=== PATIENT | male | born 1960 | race Hispanic/Latino ===

== ENCOUNTER 2017-10-16 12:20 | Observation (INO) | payer OTHER ==
[2017-10-16 12:57] LABS: #Basophils 0.1 thou/uL (0.0-0.2); #Eosinphils 0.1 thou/uL (0.0-0.7); #Lymphocytes 1.6 thou/uL (1.20-3.40); #Monocytes 0.3 thou/uL (0.11-0.59); #Neutrophils 3.4 thou/uL (1.40-6.50); %Basophils 1.6 % (0.0-1.0); %Eosinophils 1.4 % (0.0-10.0); %Lymphocytes 28.9 % (21.0-51.0); %Monocytes 5.7 % (0.0-10.0); %Neutrophils 62.4 % (42.0-75.0); Hemoglobin 16.1 g/dL (14.0-18.0); Mean Corpuscular HGB CONC 34.5 g/dL (32.0-36.0); Mean Corpuscular Hemoglobin 31.1 pg (27.0-31.0); Mean Corpuscular Volume 90.2 fL (78.0-98.0); Mean Platelet Volume 7.4 fL (7.4-10.4); Platelet Count 222 thou/uL (130-400); RBC Distribution Width 11.4 % (11.5-14.5); Red Blood Cell (RBC) Count 5.18 mill/uL (4.70-6.10); White Blood Cell (WBC) Count 5.4 thou/uL (4.8-10.8)
--- NOTE | 2017-10-16 12:58 | RAD ---
CHEST ONE VIEW: History: Palpitations. FINDINGS: No comparison. Cardiac silhouette is magnified by projection. Pulmonary vasculature is unremarkable. Mediastinum is midline. No lobar consolidation or evidence of pneumothorax. curriculum assistant principal leads ove rlie the chest. IMPRESSION: No active cardiopulmonary abnormalities are demonstrated. POS: [facility]
[2017-10-16 13:13] LABS: ALT (SGPT) 23 U/L (8-55); AST (SGOT) 25 U/L (5-34); Albumin 4.5 g/dL (3.5-5.0); Alkaline Phosphatase 69 U/L (40-150); Anion Gap 12 mmol/L (10-20); BUN (Urea Nitrogen) 18 mg/dL (8.4-25.7); Bilirubin, Total 1.8 mg/dL (0.2-1.2); CK (CPK) 207 U/L (30-200); Calc. Creatinine Clearance 0 mL/min (70-130); Calcium 9.7 mg/dL (7.8-10.44); Carbon Dioxide 25 mmol/L (22-29); Chloride 104 mmol/L (98-107); Estimated GFR-MDRD 64; Globulin 2.9 g/dL (2.4-3.5); Glucose 101 mg/dL (70-105); Lipase 44 U/L (8-78); Potassium 4.2 mmol/L (3.5-5.1); Protein, Total 7.4 g/dL (6.0-8.3); Sodium 137 mmol/L (136-145)
[2017-10-16 13:18] LABS: CKMB 3.3 ng/mL (0-6.6); Troponin I Less than 0.010 ng/mL (< 0.028)
[2017-10-16] MEDS ORDERED: Enoxaparin Sodium 80 MG/0.8 ML SYRINGE ONE (15:04)
[2017-10-16 15:53] VITALS: BMI 25.6
--- NOTE | 2017-10-16 18:01 | CON ---
DATE OF CONSULTATION: 10/16/2017 REASON FOR CONSULTATION: Atrial flutter. HISTORY OF PRESENT ILLNESS: Mr. Dickinson is a pleasant 57-year-old gentleman with no significant past medical history who states he has not felt well over the last month. He states he monitors heart rat e regularly while running. His heart rate has been elevated at rest. It is always in the 40s and 50 s, appears in the 80s and 90s. No chest pain or pressure noted. He does get shortness of breath wit h exertion as his heart rate increases. He had stopped on multiple occasions. He was recently seen and evaluated with an EKG and found to be in atrial flutter. It was recommended he proceed to the em ergency room where he has been subsequently admitted. PAST MEDICAL HISTORY: None. PAST SURGICAL HISTORY: None. SOCIAL HISTORY: No current alcohol or tobacco use. ALLERGIES: None. MEDICATIONS: None. REVIEW OF SYSTEMS: Ten point review of systems reviewed as above, otherwise negative. PHYSICAL EXAMINATION: GENERAL: Patient is a pleasant male who is in no acute distress. The patient appears his stated age. VITAL SIGNS: Blood pressure 170/84, pulse 85, temperature 97.4. NEUROLOGIC: The patient is alert and oriented times 3 with no focal neurologic deficits. HEENT: Sclerae without icterus. Mouth has moist mucous membranes with normal pallor. NECK: No JVD. Carotid upstroke brisk. No bruits bilaterally. LUNGS: Clear to auscultation with unlabored respirations. BACK: No scoliosis or kyphosis. CARDIAC: Regular rate and rhythm with normal S1 and S2. No S3 or S4 noted. No significant rubs, murmurs, thrills, or gallops noted throughout the precordium. PMI is not displaced. There is no parasternal heave. ABDOMEN: Soft, nontender, nondistended. No peritoneal signs present. No hepatosplenomegaly. No abnormal striae. EXTREMITIES: 2+ femoral and 2+ dorsalis pedis pulses. No cyanosis, clubbing, or edema. SKIN: No gross abnormalities. IMAGING DATA: EKG shows atrial flutter with variable block. PERTINENT LABORATORY DATA: Hemoglobin 16.1, ACL CK of 203 with an MB of 3.3, troponin less aubrey n 0.01. IMPRESSION: Atrial flutter. RECOMMENDATIONS: 1. Add Lovenox. 2. Consult EP. 3. Consider EP ablation tomorrow. He may also consider discharging and performing an EP procedure a s an outpatient. Patient appears to be stable and agree with monitoring overnight to assess for any significant dysrhythmias.
[2017-10-16 18:02] LABS: Troponin I Less than 0.010 ng/mL (< 0.028)
[2017-10-16] MEDS ORDERED: Acetaminophen 650 MG/20.3 ML UDCUP PO PRN (18:22)
[2017-10-16] MEDS ORDERED: Zolpidem Tartrate 5 MG TAB PO PRN (18:22)
[2017-10-16 20:24] LABS: Troponin I Less than 0.010 ng/mL (< 0.028)
--- NOTE | 2017-10-17 01:52 | HP ---
DATE OF ADMISSION: 10/16/2017 HISTORY OF PRESENT ILLNESS: This is a 57-year-old Latin-[place] male who presents with fatigue. Th e patient has been in relatively good health. He has been jogging for many years. Ever since June s stamina has been markedly decreased. Over the past 4 weeks, he has only been able to jog mile and a half and then has to walk for a period of time before he can resume his jogging. This is very unus ual of him. His problem has become progressively worse and he has noted his heart rate to be at time s 140-180 which is unusual. His resting heart rate at times also is 70-90 where he has been in the 4 5-55 range for years. He has no associated chest pain, shortness of breath, nausea or vomiting. He was seen in the office this morning by our PA Ronan and she found him to be in atrial flutter and w as referred to the emergency room. PAST MEDICAL HISTORY: Losartan 50 mg daily, Flomax 0.4 mg daily, finasteride 5 daily. ALLERGIES: None. PAST MEDICAL HISTORY: Hypertension, hyperlipidemia, BPH. PAST SURGICAL HISTORY: Include colonoscopy [place] [address] Alexis. FAMILY HISTORY: Father 84 with heart disease and bypass. Mother 78. Brother at 57 years of ag e while jogging. No family history of cancer. SOCIAL HISTORY: He has four daughters ranging from 21-39. He is . He does not smoke. REVIEW OF SYSTEMS: As above. PHYSICAL EXAMINATION: VITAL SIGNS: Stable, afebrile, blood pressure 122/84, heart rate 80, temperature 98.0. GENERAL: No acute distress, ambulating without difficulty. HEENT: Clear. HEART: Irregularly irregular. No murmurs noted. LUNGS: Clear to auscultation. ABDOMEN: Soft, nontender. EXTREMITIES: With no edema. LABORATORY DATA: White count 5.4, H&H 16 and 46, platelets 222. Electrolytes normal. Creatinine 1. 17, BUN 18. Troponin less than 0.010 x3. ASSESSMENT: 1. New onset atrial flutter. 2. Hypertension. 3. Hyperlipidemia. 4. Benign prostatic hypertrophy. PLAN: 1. Lovenox 1 mg/kg q.12. 2. Admit to telemetry for observation overnight. 3. Consult Dr. Nieves done. 4. Consult Dr. Panda for cardiac ablation evaluation. 5. Discuss atrial flutter at length with the patient.
[2017-10-17] MEDS ORDERED: Enoxaparin Sodium 80 MG/0.8 ML SYRINGE SC SCH (09:00)
[2017-10-17] MEDS ORDERED: Tamsulosin HCl 0.4 MG CAP PO SCH (09:00)
[2017-10-17] MEDS ORDERED: Finasteride 5 MG TAB PO SCH (09:00)
--- NOTE | 2017-10-17 09:24 | DIS ---
DATE OF ADMISSION: 10/16/2017 DATE OF DISCHARGE: 10/17/2017 DISCHARGE DIAGNOSES: 1. New onset atrial flutter. 2. Hypertension. 3. Hyperlipidemia. 4. Benign prostatic hypertrophy. DISCHARGE MEDICATIONS: Losartan 50 mg daily, Flomax 0.4 mg daily, finasteride 5 every day, Eliquis 5 p.o. b.i.d. FOLLOWUP: Follow up with Dr. Luis A Brown, follow up with Dr. Nieves. Follow up Dr. Panda and miryam munoz up for outpatient cardiac ablation next week. BRIEF HISTORY: This is a 57-year-old male who presents with fatigue who has been in r elatively good health. He has been jogging for many years. In June he noted that his stamina has had become markedly decreased. Over the past 4 weeks, he has only been able to jog a mile and a half an d then has to walk for a period of time before he can resume his jogging. This was very unusual for him. This problem became progressively worse and he noted his heart rate at times to be to 140 to 18 0, which was very unusual. His resting was also 70-90, which normally it is in the 45-55 range. He then presented to the office and saw ARIANA eFrraro who discovered him to be in atrial flutter and he was admitted for further treatment. HOSPITAL COURSE: The patient has been seen by Dr. Nieves. Dr. Panda has been consulted. The carmelo ent has been demonstrated no unusual dysrhythmia other than the atrial flutter overnight. The patien t remains completely stable. He will be discharged on Eliquis 5 p.o. b.i.d. and an outpatient cardia c ablation will be arranged for next week. Precautions have been given to the patient. LABORATORY: CBC unremarkable. Electrolytes unremarkable. Troponin less than 0.010 x3. Chest x-ray negative.
[2017-10-17 17:00] VITALS: TEMP 97.7
[2017-10-17 17:32] VITALS: BP 117/89
--- NOTE | 2017-10-17 20:18 | CON ---
DATE OF CONSULTATION: 10/17/2017 ELECTROPHYSIOLOGY CONSULTATION REFERRING PHYSICIAN: Dr. Narayan Nieves for typical atrial flutter, newly diagnosed. HISTORY OF PRESENT ILLNESS: Mr. Dickinson is a very pleasant gentleman with no significant past medical history. He is 57 years old. He is very physically active and runs on a regular basis. He has no history of abnormal heart rhythms or chronic health issues. He does report that over the past 4 week s, he has noticed that his resting heart rate has been substantially elevated from its usual baseline . Generally, his resting heart rate is 50-60 beats per minute and has been elevated from 80-90. He is continue to monitor through and has noticed some that he fatigues easily, more easily when h e runs. He suspects that he has been having episodes as far back in February of this year based on sy mptoms while running. His elevated heart rate eventually prompted him to follow up with his primary care provider, Dr. Brown. When he was there, he had an EKG done that showed atrial flutter and he w as sent to the emergency room for further evaluation. His ventricular rate has been controlled in th e 70-80 beat per minute range unless he is active moving around then he will have RVR with rates up t o 125 beats per minute which quickly returned to her baseline with rest. He is largely asymptomatic with his arrhythmias. He denies any heart racing, palpitations, chest pain, pressure, syncope, near syncope, stroke or stroke like symptoms. His only associated symptom is the easier fatigability with running. REVIEW OF SYSTEMS: A 12-point review of systems was conducted and is negative except that listed abo ve in the HPI. PAST MEDICAL HISTORY: No past medical history. HOME MEDICATIONS: No home medications. FAMILY HISTORY: Negative for sudden cardiac or early onset coronary artery disease. SOCIAL HISTORY: He denies alcohol, tobacco or illicit drug use. He is with children. PHYSICAL EXAMINATION: VITAL SIGNS: Most recent vital signs, temperature 98.2 degrees Fahrenheit, respirations 12, blood pr essure 105/78, respirations are 14, oxygen saturation is 99% on room air. GENERAL: This is a well-appearing, athletic, middle-aged gentleman, in no apparent distress. He is alert and oriented. Speech is clear. His affect is appropriate. HEENT: He is normocephalic, atraumatic. Sclerae are anicteric. His EOMs are intact. His oral muco sa is moist and pink with adequate dentition. NECK: Supple without jugular venous distention. Thyroid is not palpable. HEART: Rate is regular. PMI is nondisplaced. EXTREMITIES: Warm and dry to touch without clubbing, cyanosis or edema. LUNGS: Clear to auscultation bilaterally without wheezes, crackles or rhonchi. ABDOMEN: Soft, nontender without palpable masses. Hepatojugular reflex is negative. NEUROLOGIC: Grossly intact and nonfocal. His gait is stable. DATABASE: Review of telemetry and EKGs all were personally reviewed and indicate likely typical CTI dependent atrial flutter with mostly controlled ventricular rates in the 70-80 beat per minute range with brief episodes of RVR that are nonsustained. Hematology was reviewed and is unremarkable. Chem istries reveal creatinine is 1.17. Serial troponins were negative. TSH is not tested. Electrolytes are within normal limits. ASSESSMENT AND PLAN: 1. Newly found typical atrial flutter with controlled ventricular rates and largely asymptomatic oth er than fatigue with activity. 2. CHADS-VASc score of 0, but will be started on oral anticoagulation anticipating an ablation in e near future. RECOMMENDATIONS: A long discussion was had with Mr. Dickinson and his daughter regarding atrial flutter and possible treatment options. We discussed medical management, cardioversion as well as ablation. At this time, he is okay to discharge on oral anticoagulation with Eliquis 5 mg p.o. b.i.d., and he will be scheduled for an outpatient ablation in the near future. If this occurs within 1 month, he will need KACIE prior to his ablation to evaluate the left atrial appendage for any potential thrombus. In the meantime, his ventricular rate remains controlled and he will monitor his heart rate. If he becomes symptomatic with instructions to contact our office for further instruction and for any emerita tional concerns that may arise. Thank you for allowing us to participate in the care of this patient. All questions have been answer ed. Shelley Lemus NP, dictating scribe for Dr. Jakob Panda.
--- NOTE | 2017-10-19 21:20 | EKG ---
Test Reason : Blood Pressure : / mmHG Vent. Rate : 103 BPM Atrial Rate : 309 BPM P-R Int : 000 ms QRS Dur : 082 ms QT Int : 358 ms P-R-T Axes : 000 084 009 degrees QTc Int : 468 ms Atrial flutter with variable A-V block Cannot rule out Inferior infarct , age undetermined Abnormal ECG Confirmed by SHAZIA COLLADO DO ([id number]), tape editor JUSTIN COOPER ([id number]) on 10/19/2017 9:20:12 PM Referred By: Confirmed By:SHAZIA COLLADO DO
== END 2017-10-17 17:35 | disposition home or self-care (01) ==
LOC: ERS 12:20 → 2SW 14:00
PROVIDERS: ADMIT Family Medicine; ATTEND Family Medicine
DX: I48.3 Typical atrial flutter (principal); I10 Essential (primary) hypertension; E78.5 Hyperlipidemia, unspecified; N40.0 Benign prostatic hyperplasia without lower urinary tract symptoms; Z79.899 Other long term (current) drug therapy
CPT/HCPCS: 36415; 71045; 80053; 82553; 83690; 84484; 85025; 93005; 96372; G0378; J1650

== ENCOUNTER 2017-10-21 06:53 | Observation (INO) | payer OTHER ==
[2017-10-21 09:08] LABS: INR-International Normal Ratio 1.1; PTT 30.4 SEC (22.9-36.1); Prothrombin Time 13.9 SEC (12.0-14.7)
[2017-10-21] MEDS ORDERED: Propofol 500 MG/50 ML VIAL ONE (09:39)
[2017-10-21] MEDS ORDERED: PROPOFOL 40 ML ONE (09:44)
[2017-10-21] MEDS ORDERED: Lidocaine 1% (PF) 30 ML VIAL ONE (10:08)
[2017-10-21] MEDS ORDERED: Heparin 10,000 UNITS/1 ML VIAL ONE ×2 (10:37→14:24)
[2017-10-21] MEDS ORDERED: PHENYLEPHRINE-NS 100 MCG/ML 10 ML SYRINGE ONE (10:51)
[2017-10-21] MEDS ORDERED: Heparin 25,000 units/D5W 500 ML ONE (11:18)
[2017-10-21] MEDS ORDERED: Fentanyl 100 MCG/2 ML VIAL ONE (11:19)
[2017-10-21] MEDS ORDERED: Isoproterenol 0.2 MG/1 ML AMP ONE (13:22)
[2017-10-21] MEDS ORDERED: Protamine Sulfate 50 MG/5 ML VIAL ONE (14:35)
[2017-10-21] MEDS ORDERED: Promethazine HCl 25 MG/ML VIAL SLOW IVP PRN (15:33)
[2017-10-21] MEDS ORDERED: Ondansetron HCl/PF 4 MG/2 ML Vial IVP PRN (15:33)
[2017-10-21] MEDS ORDERED: Promethazine HCl 25 MG/ML VIAL IM PRN (15:33)
[2017-10-21] MEDS ORDERED: Acetaminophen/Codeine 30-300mg Tablet PO PRN ×2 (15:45)
[2017-10-21 17:55] VITALS: BMI 26.3
--- NOTE | 2017-10-21 18:00 | ECHO ---
CARDIOLOGY PROCEDURE NOTE: Date: 10/21/17 PROCEDURE: Transesophageal echocardiogram. REASON FOR PROCEDURE: Mr. Dickinson is a 57-year-old man with history of no structural heart disease presenting with atrial fl utter initially which converted to atrial fibrillation. He is here for radiofrequency ablation proce dure. KACIE is performed prior to the procedure to rule out intracardiac clots. The patient has been an ticoagulated with Eliquis, but less than 1 week. PROCEDURE: The patient received propofol by anesthesia specialist. After adequate sedation achieved, a standard transesophageal echocardiogram probe was passed into the esophagus without difficulty. Patient tolera fabio procedure well. No complications noted. RESULTS: Left atrium is enlarged, 5.3 cm, horizontal diameter. Left atrial appendage is well visualized, conta ins no clots. Left atrial appendage velocities up to 50 cm per second, which is adequate. Four of fou r pulmonary veins are well seen without stenosis. Interatrial septum is without defect. Mitral valve has mild regurgitation. Pulmonic valve not regurgitant. Aortic valve has 3 leaflets without regurgita tion or stenosis. Tricuspid valve also with trace regurgitation only. Left ventricular function prese rved, wall thickness and size normal. Right side chambers nondilated. Pericardial space is without ef fusion, and visualized portions of the ascending and descending aorta are without aneurysm, dissectio n, or significant atheroma. CONCLUSION: 1. No intracardiac clots. 2. Normal left ventricular systolic function. 3. Moderate left atrial enlargement. 4. Mild mitral regurgitation. PLAN: Proceed with ablation procedure.
[2017-10-21] MEDS: Sucralfate 1 GM TAB PO SCH (18:22)
[2017-10-21] MEDS: Apixaban 5 MG TAB PO SCH (20:50)
[2017-10-21] MEDS ORDERED: Finasteride 5 MG TAB PO SCH (21:00)
[2017-10-22] MEDS: Sucralfate 1 GM TAB PO SCH ×3 (01:10→12:08)
[2017-10-22] MEDS ORDERED: Protamine Sulfate 50 MG/5 ML VIAL ONE (06:43)
[2017-10-22] MEDS ORDERED: Tamsulosin HCl 0.4 MG CAP PO SCH (09:00)
[2017-10-22] MEDS ORDERED: Losartan 25 MG TAB PO SCH (09:00)
[2017-10-22] MEDS: Apixaban 5 MG TAB PO SCH (10:26)
--- NOTE | 2017-10-22 11:23 | OP ---
DATE OF PROCEDURE: 10/21/2017 g ELECTROPHYSIOLOGY STUDY AND RADIOFREQUENCY ABLATION PROCEDURE REPORT REFERRING PHYSICIAN: Narayan Nieves M.D. REASON FOR PROCEDURE: Mr. Dickinson is a 57-year-old man with history of recently found atrial flutter and fibrillation. He underwent a KACIE prior to the procedure, demonstrating no clots. He is here for radiofrequency ablation. PROCEDURE: The patient received propofol by Anesthesia specialist with general anesthesia and intubation. After adequate level of sedation achieved, the left and right femoral venous area was prepped, draped and anesthetized using subcutaneous lidocaine and cannulated with a multipurpose needle x2. The right femoral vein was used to insert a 11- [place] short sheath through which an 10 [place] ICE catheter was advanced to the right atrium for monitoring of the transseptal puncture as well as any effusion in the pericardium. Also, an 8 [place] short sheath was used to advance a Decapolar catheter to the right ventricular His bundle, right atrium and eventually CS position. Pacing, mapping, and recording was performed in each location. A ThermoCool SF ST ablation catheter was used to image the right atrium. Following that, transseptal puncture was performed x2 under ICE and fluoroscopic guidance. SL1 and SL0 sheaths were advanced to the left atrium under fluoroscopic monitoring. IV heparin was administered at this point and was adjusted throughout the case to keep the ACT over 350. Through this sheath, a 20-pole deflectable Lasso catheter was used for mapping the left atrium and also the ThermoCool SF ST catheter was reintroduced into the left atrium through the sheath. Upon venous isolation was performed with close monitoring of the esophageal temperatures with esophageal probe. Also, posterior wall isolation was performed with placement of superior and inferior lines. Additional ablation in the CS roof were delivered. End of this procedure, the patient remained in atrial fibrillation and cardioversion was performed. The isuprel was administered and then the reconnection in the right superior pulmonary veins were assessed, the left superior pulmonary veins were noted and re-ablated. Following that, the catheter was withdrawn to the right atrium and the heparin was stopped. The EP study was performed. Following findings: HV was 52. The AV Wenckebach cycle length was 380 milliseconds. AV node ERP is 400/190. Dual AV marlee physiology was present. Concentric ventricular activation was seen during LV pacing with RV Wenckebach cycle length 380 milliseconds. No evidence of accessory pathway was present. Burst atrial pacing did not induce arrhythmia. Due the prior history of typical atrial flutter, decision was made to perform a cavotricuspid isthmus line which was performed with the help of Carto 3D imaging system as well as ICE catheter monitoring. The trans-isthmus time increased from 40 milliseconds to 150 milliseconds and unidirectional block was clearly demonstrated by longest trans-isthmus time was adjacent to the lateral side of the line. Total of 45 min RFA delivered with average 40W. Following that, the cinegrarphy of the left lateral border of the heart demonstrated no change and also ICE catheter was advanced to the right ventricle and no evidence of pericardial effusion was noted. Catheter was removed. The protamine was administered and the sheaths were pulled after adequate reversal of the heparin. The patient tolerated the procedure well, no complication noted. CONCLUSION: 1. Successful pulmonary venous isolation as well as posterior wall isolation performed. 2. Ablation in the inferior part of the left atrium was also performed 1. Cavotricuspid isthmus ablation performed. 2. Presence of dual AV marlee physiology without inducible AV marlee reentry tachycardia. 3. No evidence of accessory pathway by LV pacing. PLAN: Resume anticoagulation and monitor for recurrence any arrhythmias. [facility]
[2017-10-22 15:48] VITALS: BP 123/66; TEMP 98.2
--- NOTE | 2017-10-22 17:41 | EKG ---
Test Reason : PREOP Blood Pressure : / mmHG Vent. Rate : 070 BPM Atrial Rate : 468 BPM P-R Int : 000 ms QRS Dur : 100 ms QT Int : 380 ms P-R-T Axes : 000 082 014 degrees QTc Int : 410 ms Atrial fibrillation Nonspecific ST and T wave abnormality Abnormal ECG When compared with ECG of 16-OCT-2017 12:26, Atrial fibrillation has replaced Atrial flutter ST no longer elevated in Inferior leads QT has shortened Confirmed by DR. Ana BAKER ([id number]) on 10/22/2017 5:41:18 PM Referred By: [facility] Confirmed By:DR. Ana BAKER
--- NOTE | 2017-10-22 17:43 | EKG ---
Test Reason : STAT Blood Pressure : / mmHG Vent. Rate : 063 BPM Atrial Rate : 063 BPM P-R Int : 160 ms QRS Dur : 090 ms QT Int : 444 ms P-R-T Axes : 037 087 024 degrees QTc Int : 454 ms Normal sinus rhythm Nonspecific ST and T wave abnormality Abnormal ECG When compared with ECG of 21-OCT-2017 09:19, (Unconfirmed) Possible LVH Confirmed by DR. Ana BAKER ([id number]) on 10/22/2017 5:43:30 PM Referred By: [facility] Confirmed By:DR. Ana BAKER
--- NOTE | 2017-10-22 17:45 | EKG ---
Test Reason : Blood Pressure : / mmHG Vent. Rate : 061 BPM Atrial Rate : 061 BPM P-R Int : 186 ms QRS Dur : 092 ms QT Int : 434 ms P-R-T Axes : 065 077 085 degrees QTc Int : 436 ms Normal sinus rhythm T wave abnormality, consider lateral ischemia Abnormal ECG When compared with ECG of 21-OCT-2017 15:39, (Unconfirmed) No significant change was found Left Ventricular Hypertrophy Confirmed by DR. Ana BAKER ([id number]) on 10/22/2017 5:45:01 PM Referred By: [facility] Confirmed By:DR. Ana BAKER
--- NOTE | 2017-10-23 01:46 | DIS ---
DATE OF ADMISSION: 10/21/2017 DATE OF DISCHARGE: 10/22/2017 REFERRING PHYSICIAN: Narayan Nieves M.D. HOSPITAL COURSE: Mr. Dickinson was admitted for KACIE and ablation procedure. He was found to be in atri al fibrillation in the morning of the procedure and decision was made to perform not just right atria l, but also left atrial ablation at the time of his ablation. He underwent a pulmonary venous isolat ion, posterior wall isolation, procedure for atrial fibrillation, a stress cavotricuspid isthmus abla tion was also performed. A total of 45 minutes of ablation delivered. He resumed Eliquis immediatel y in the evening of the procedure and he remained stable overnight. The subsequent day he remained i n sinus rhythm. PHYSICAL EXAMINATION: VITAL SIGNS: Blood pressure 131/72, heart rate 70, respirations 18. Temperature 97.1 degrees Fahren heit, oxygen saturation 95% on room air. GENERAL: Alert and oriented man in no apparent distress. NECK: Supple. Jugular veins slightly distended. CHEST: Coarse no crackles. HEART: Sounds are regular to rate and rhythm. No murmur, gallop or rub is heard. PMI is nonpalpabl e. ABDOMEN: Benign. Bowel sounds positive. Bilateral groin sites without reaction. EXTREMITIES: Lower extremity without edema, clubbing or cyanosis. DATABASE: Telemetry strips reveal sinus rhythm, rare PVCs, no atrial fibrillation noted. REASON FOR PROCEDURE: Mr. Dickinson is a 57-year-old man with history of persistent atrial flutter and atrial fibrillation who underwent combined left atrial pulmonary venous isolation and posterior wall ablation as well as right cavotricuspid isthmus ablation procedure yesterday. He remained stable ove rnight and stable for discharge. He will be requested to resume his Eliquis medication following the m twice a day. Losartan 25 daily, resumed. I gave him also Protonix 40 mg daily for next 30 days an d Carafate 1 gram q.i.d. for the next 14 days. He is requested to take Lasix 40 mg daily 10 mE q of potassium for next 3 days or then as directed and necessary for a total of 10 days. Follow up w ill be requested in 6 months.
== END 2017-10-22 15:59 | disposition home or self-care (01) ==
LOC: SDC 06:53 → 2SW 16:50
PROVIDERS: ADMIT Internal Medicine Cardiovascular Disease; ATTEND Internal Medicine Cardiovascular Disease
PROC: 4A023FZ Measurement of Cardiac Rhythm, Percutaneous Approach (ICD-10-PCS; principal; 2017-10-21)
PROC: 4A0234Z Measurement of Cardiac Electrical Activity, Percutaneous Approach (ICD-10-PCS; 2017-10-21)
PROC: 02583ZZ Destruction of Conduction Mechanism, Percutaneous Approach (ICD-10-PCS; 2017-10-21)
PROC: 02K83ZZ Map Conduction Mechanism, Percutaneous Approach (ICD-10-PCS; 2017-10-21)
PROC: B246ZZZ Ultrasonography of Right and Left Heart (ICD-10-PCS; 2017-10-21)
DX: I48.1 Persistent atrial fibrillation (principal); I48.92 Unspecified atrial flutter; Z79.01 Long term (current) use of anticoagulants; Z79.899 Other long term (current) drug therapy
CPT/HCPCS: 76942; 85347; 85610; 85730; 92960; 93005; 93010; 93312; 93613; 93623; 93656; 93657; 93662; C1730; C1732; C1759; C1769; G0378; J1644; J2001; J2704; J2720; J3010

== ENCOUNTER 2017-11-04 07:35 | Day surgery (SDC) | payer OTHER ==
[2017-11-01 15:59] VITALS: BMI 25.4
[2017-11-04 08:41] LABS: #Basophils 0.1 thou/uL (0.0-0.2); #Eosinphils 0.1 thou/uL (0.0-0.7); #Lymphocytes 1.7 thou/uL (1.20-3.40); #Monocytes 0.3 thou/uL (0.11-0.59); %Basophils 0.8 % (0.0-1.0); %Lymphocytes 23.2 % (21.0-51.0); %Monocytes 4.2 % (0.0-10.0); %Neutrophils 69.9 % (42.0-75.0); Hemoglobin 14.6 g/dL (14.0-18.0); Mean Corpuscular Hemoglobin 30.4 pg (27.0-31.0); Mean Corpuscular Volume 89.5 fL (78.0-98.0); Mean Platelet Volume 6.7 fL (7.4-10.4); Platelet Count 238 thou/uL (130-400); RBC Distribution Width 11.3 % (11.5-14.5); Red Blood Cell (RBC) Count 4.81 mill/uL (4.70-6.10); White Blood Cell (WBC) Count 7.2 thou/uL (4.8-10.8)
[2017-11-04 08:48] LABS: INR-International Normal Ratio 1.1; PTT 28.8 SEC (22.9-36.1); Prothrombin Time 14.5 SEC (12.0-14.7)
[2017-11-04 09:04] LABS: Anion Gap 12 mmol/L (10-20); BUN (Urea Nitrogen) 17 mg/dL (8.4-25.7); Calc. Creatinine Clearance 74 mL/min (70-130); Calcium 9.5 mg/dL (7.8-10.44); Carbon Dioxide 26 mmol/L (22-29); Chloride 105 mmol/L (98-107); Estimated GFR-MDRD 63; Glucose 102 mg/dL (70-105); Potassium 4.2 mmol/L (3.5-5.1); Sodium 139 mmol/L (136-145)
--- NOTE | 2017-11-04 10:42 | OP ---
DATE OF PROCEDURE: 11/04/2017 SURGEON: Dr. Jakob Panda PROCEDURE: Cardioversion. REFERRING PHYSICIAN: Dr. Narayan Nieves Mr. Dickinson is a pleasant 57-year-old male with history of atrial flutter and fibrillation. He underw ent CT ablation with successful pulmonary venous isolation procedure on 10/22/2017. He has had recur rence of atrial flutter with typical features. He is here for a cardioversion. He had an interrupte d Eliquis therapy since the ablation. PROCEDURE: The patient received propofol per Anesthesia specialist. After adequate sedation achieve d, a 70 joule shock did not, but after subsequent 150 joule converted the patient back to sinus rhyth m. The rhythm is sinus bradycardia in 60 beats per minute. CONCLUSION: Successful cardioversion. PLAN: Continue flecainide low dose, consider increasing if symptomatic recurrent atrial fibrillation or flutter occurs and continue uninterrupted interrogation. Follow up is already arranged.
[2017-11-04] MEDS ORDERED: Lidocaine 1% PF 5 ML VIAL ONE (12:36)
[2017-11-04] MEDS ORDERED: PROPOFOL 200 MG/20 ML VIAL ONE (12:36)
--- NOTE | 2017-11-04 16:53 | EKG ---
Test Reason : PREOP Blood Pressure : / mmHG Vent. Rate : 086 BPM Atrial Rate : 267 BPM P-R Int : 000 ms QRS Dur : 108 ms QT Int : 376 ms P-R-T Axes : -85 094 -15 degrees QTc Int : 449 ms Atrial flutter with variable A-V block Rightward axis Possible Inferior infarct , age undetermined Abnormal ECG When compared with ECG of 22-OCT-2017 07:05, Atrial flutter has replaced Sinus rhythm Non-specific change in ST segment in Inferior leads Confirmed by WILL MACKENZIE, SAdrianna ([id number]) on 11/04/2017 4:52:49 PM Referred By: [facility] Confirmed By:DR. Kellie SOLIS MD
== END 2017-11-04 11:00 | disposition home or self-care (01) ==
LOC: CCL 07:35
PROVIDERS: ATTEND Internal Medicine Cardiovascular Disease
PROC: 5A2204Z Restoration of Cardiac Rhythm, Single (ICD-10-PCS; principal; 2017-11-04)
DX: I48.92 Unspecified atrial flutter (principal); I48.0 Paroxysmal atrial fibrillation; Z79.01 Long term (current) use of anticoagulants; Z79.899 Other long term (current) drug therapy
CPT/HCPCS: 36415; 80048; 85025; 85610; 85730; 92960; 93005; 93010

== ENCOUNTER 2017-11-15 11:45 | Day surgery (SDC) | payer OTHER ==
[2017-11-14 17:15] VITALS: BMI 25.8
[~2017-11-15 11:45] MED LIST: PROPOFOL 200 MG/20 ML VIAL ONE
[2017-11-15 14:11] LABS: #Eosinphils 0.2 thou/uL (0.0-0.7); #Lymphocytes 1.4 thou/uL (1.20-3.40); #Monocytes 0.3 thou/uL (0.11-0.59); #Neutrophils 3.7 thou/uL (1.40-6.50); %Basophils 0.6 % (0.0-1.0); %Eosinophils 2.8 % (0.0-10.0); %Lymphocytes 25.4 % (21.0-51.0); %Monocytes 5.9 % (0.0-10.0); %Neutrophils 65.4 % (42.0-75.0); Hemoglobin 15.9 g/dL (14.0-18.0); Mean Corpuscular HGB CONC 33.8 g/dL (32.0-36.0); Mean Corpuscular Hemoglobin 30.8 pg (27.0-31.0); Mean Platelet Volume 7.2 fL (7.4-10.4); Platelet Count 216 thou/uL (130-400); RBC Distribution Width 11.5 % (11.5-14.5); Red Blood Cell (RBC) Count 5.18 mill/uL (4.70-6.10); White Blood Cell (WBC) Count 5.6 thou/uL (4.8-10.8)
[2017-11-15 14:16] LABS: INR-International Normal Ratio 1.2; PTT 30.7 SEC (22.9-36.1); Prothrombin Time 15.1 SEC (12.0-14.7)
[2017-11-15 14:25] LABS: Anion Gap 11 mmol/L (10-20); BUN (Urea Nitrogen) 15 mg/dL (8.4-25.7); Calc. Creatinine Clearance 76 mL/min (70-130); Calcium 9.7 mg/dL (7.8-10.44); Carbon Dioxide 29 mmol/L (22-29); Chloride 103 mmol/L (98-107); Estimated GFR-MDRD 63; Glucose 97 mg/dL (70-105); Potassium 4.7 mmol/L (3.5-5.1); Sodium 138 mmol/L (136-145)
--- NOTE | 2017-11-15 20:43 | OP ---
DATE OF SERVICE: 11/15/2017 CARDIOVERSION REPORT REASON FOR PROCEDURE: Mr. Dickinson is a 57-year-old man with history of atrial flutter and fibrillatio n both, who underwent a pulmonary venous isolation verses chronic CTI ablation a month ago. He had a recurrence. He is now on flecainide 100 mg twice a day, attempted cardioversion. He has not stoppe d his oral anticoagulation. PROCEDURE: The patient received propofol by Anesthesia specialist. After adequate sedation achieved , a synchronized 70 joule shock promptly converted the patient back to sinus rhythm, returned rates a re 40 beats per minute. CONCLUSION: Successful cardioversion. PLAN: Continue flecainide and use metoprolol as necessary for low heart rate. Continue oral anticoa gulation. Outpatient office follow.
--- NOTE | 2017-11-17 21:18 | EKG ---
Test Reason : PREOP Blood Pressure : / mmHG Vent. Rate : 082 BPM Atrial Rate : 082 BPM P-R Int : 206 ms QRS Dur : 108 ms QT Int : 402 ms P-R-T Axes : 000 099 -45 degrees QTc Int : 469 ms Sinus rhythm with marked sinus arrhythmia Rightward axis Inferior infarct (cited on or before 04-NOV-2017) Abnormal ECG When compared with ECG of 04-NOV-2017 08:13, Sinus rhythm has replaced Atrial flutter ST now depressed in Inferior leads Confirmed by Nya CAST ([id number]) on 11/17/2017 9:17:53 PM Referred By: ELEUTERIO Confirmed By:Nya CAST
--- NOTE | 2017-11-17 21:19 | EKG ---
Test Reason : POST CARDIOVERSION Blood Pressure : / mmHG Vent. Rate : 045 BPM Atrial Rate : 045 BPM P-R Int : 226 ms QRS Dur : 104 ms QT Int : 498 ms P-R-T Axes : 062 098 046 degrees QTc Int : 430 ms Marked sinus bradycardia with 1st degree A-V block Rightward axis Incomplete right bundle branch block Nonspecific T wave abnormality Abnormal ECG When compared with ECG of 15-NOV-2017 13:49, (Unconfirmed) Vent. rate has decreased BY 37 BPM Incomplete right bundle branch block is now Present ST no longer depressed in Inferior leads T wave inversion no longer evident in Inferior leads Confirmed by Nya CAST ([id number]) on 11/17/2017 9:19:17 PM Referred By: ELEUTERIO Confirmed By:Nya CAST
== END 2017-11-15 15:45 | disposition home or self-care (01) ==
LOC: SDC 11:45
PROVIDERS: ATTEND Internal Medicine Cardiovascular Disease
PROC: 5A2204Z Restoration of Cardiac Rhythm, Single (ICD-10-PCS; principal; 2017-11-15)
DX: I48.91 Unspecified atrial fibrillation (principal); Z79.01 Long term (current) use of anticoagulants; Z79.899 Other long term (current) drug therapy
CPT/HCPCS: 36415; 80048; 85025; 85610; 85730; 92960; 93005; 93010; J2704

== ENCOUNTER 2018-02-28 10:45 | Day surgery (SDC) | payer OTHER ==
[2018-02-27 14:20] VITALS: BMI 25.8
[2018-02-28 12:22] LABS: #Basophils 0.1 thou/uL (0.0-0.2); #Eosinphils 0.2 thou/uL (0.0-0.7); #Lymphocytes 1.6 thou/uL (1.20-3.40); #Monocytes 0.3 thou/uL (0.11-0.59); #Neutrophils 3.3 thou/uL (1.40-6.50); %Basophils 1.3 % (0.0-1.0); %Eosinophils 3.3 % (0.0-10.0); %Lymphocytes 29.6 % (21.0-51.0); %Monocytes 5.4 % (0.0-10.0); %Neutrophils 60.3 % (42.0-75.0); Hemoglobin 15.8 g/dL (14.0-18.0); Mean Corpuscular HGB CONC 33.8 g/dL (32.0-36.0); Mean Corpuscular Hemoglobin 29.5 pg (27.0-31.0); Mean Corpuscular Volume 87.3 fL (78.0-98.0); Mean Platelet Volume 7.4 fL (7.4-10.4); Platelet Count 205 thou/uL (130-400); RBC Distribution Width 11.8 % (11.5-14.5); Red Blood Cell (RBC) Count 5.33 mill/uL (4.70-6.10); White Blood Cell (WBC) Count 5.5 thou/uL (4.8-10.8)
[2018-02-28] MEDS ORDERED: PROPOFOL 0 ML ONE (12:23)
[2018-02-28 12:28] LABS: PTT 31.4 SEC (22.9-36.1)
[2018-02-28 12:29] LABS: INR-International Normal Ratio 1.1; Prothrombin Time 14.4 SEC (12.0-14.7)
[2018-02-28 12:39] LABS: Anion Gap 13 mmol/L (10-20); BUN (Urea Nitrogen) 13 mg/dL (8.4-25.7); Calc. Creatinine Clearance 81 mL/min (70-130); Carbon Dioxide 27 mmol/L (22-29); Chloride 105 mmol/L (98-107); Estimated GFR-MDRD 69; Glucose 93 mg/dL (70-105); Potassium 4.7 mmol/L (3.5-5.1); Sodium 140 mmol/L (136-145)
[2018-02-28] MEDS ORDERED: PROPOFOL 20 ML ONE (13:14)
[2018-02-28] MEDS ORDERED: PROPOFOL 200 MG/20 ML VIAL ONE (16:24)
--- NOTE | 2018-02-28 20:25 | OP ---
DATE OF PROCEDURE: 02/28/2018 EXTERNAL CARDIOVERSION REPORT REASON FOR PROCEDURE: Mr. Dickinson is a pleasant 58-year-old gentleman with prior history of atrial fibrillation and flutter. He underwent a prior CT and pulmonary venous isolation procedure in October 21, 2017, but has recurrence of arrhythmias requiring cardioversion in October and November with flecainide suppression. We resumed flecainide at the last visit and cardioversion is performed to restore sinus rhythm. He has been taking oral anticoagulants with Eliquis 5 mg twice a day without interruption. DESCRIPTION OF PROCEDURE: The patient received propofol by Anesthesia specialist. After adequate level of sedation achieved, a synchronized 100 joule shock promptly converted the patient back to sinus rhythm. The patient tolerated the procedure well. No complications noted. CONCLUSION: Successful cardioversion. PLAN: Continue flecainide short-term. We will likely plan for redo pulmonary venous isolation/right atrial ablation procedure. Job ID: [id number]
== END 2018-02-28 14:43 | disposition home or self-care (01) ==
LOC: CCL 10:45
PROVIDERS: ATTEND Internal Medicine Cardiovascular Disease
PROC: 5A2204Z Restoration of Cardiac Rhythm, Single (ICD-10-PCS; principal; 2018-02-28)
DX: I48.4 Atypical atrial flutter (principal); I48.91 Unspecified atrial fibrillation; I10 Essential (primary) hypertension; Z79.01 Long term (current) use of anticoagulants; Z79.899 Other long term (current) drug therapy; Z98.890 Other specified postprocedural states
CPT/HCPCS: 80048; 85025; 85610; 85730; 92960; 93005; 93010; J2704

== ENCOUNTER 2018-04-14 05:45 | Observation (INO) | payer OTHER ==
[2018-04-14] MEDS ORDERED: Heparin 10,000 UNITS/1 ML VIAL ONE ×2 (06:47→10:15)
[2018-04-14] MEDS ORDERED: Isoproterenol 0.2 MG/1 ML AMP ONE (06:47)
[2018-04-14 07:13] LABS: #Eosinphils 0.2 thou/uL (0.0-0.7); #Lymphocytes 1.6 thou/uL (1.20-3.40); #Monocytes 0.3 thou/uL (0.11-0.59); #Neutrophils 3.3 thou/uL (1.40-6.50); %Basophils 0.7 % (0.0-1.0); %Monocytes 5.7 % (0.0-10.0); %Neutrophils 60.6 % (42.0-75.0); Hemoglobin 14.4 g/dL (14.0-18.0); Mean Corpuscular HGB CONC 34.2 g/dL (32.0-36.0); Mean Corpuscular Hemoglobin 30.6 pg (27.0-31.0); Mean Corpuscular Volume 89.6 fL (78.0-98.0); Mean Platelet Volume 6.8 fL (7.4-10.4); Platelet Count 194 thou/uL (130-400); RBC Distribution Width 11.4 % (11.5-14.5); Red Blood Cell (RBC) Count 4.71 mill/uL (4.70-6.10); White Blood Cell (WBC) Count 5.5 thou/uL (4.8-10.8)
[2018-04-14 07:20] LABS: INR-International Normal Ratio 1.1; PTT 29.1 SEC (22.9-36.1); Prothrombin Time 13.8 SEC (12.0-14.7)
[2018-04-14] MEDS ORDERED: PHENYLEPHRINE-NS 100 MCG/ML 10 ML SYRINGE ONE ×2 (07:22→14:59)
[2018-04-14] MEDS ORDERED: Phenylephrine HCL 10 MG/ML VIAL ONE (07:23)
[2018-04-14 07:32] LABS: Anion Gap 10 mmol/L (10-20); BUN (Urea Nitrogen) 19 mg/dL (8.4-25.7); Calc. Creatinine Clearance 73 mL/min (70-130); Calcium 9.3 mg/dL (7.8-10.44); Carbon Dioxide 25 mmol/L (22-29); Chloride 109 mmol/L (98-107); Estimated GFR-MDRD 61; Glucose 97 mg/dL (70-105); Potassium 4.4 mmol/L (3.5-5.1); Sodium 140 mmol/L (136-145)
[2018-04-14] MEDS ORDERED: Midazolam HCl 2 mg/2 ml Vial ONE (07:52)
[2018-04-14] MEDS ORDERED: Fentanyl 100 MCG/2 ML VIAL ONE (08:07)
[2018-04-14] MEDS ORDERED: Heparin 25,000 units/D5W 500 ML ONE (10:10)
[2018-04-14] MEDS ORDERED: Protamine Sulfate 50 MG/5 ML VIAL ONE (11:21)
[2018-04-14] MEDS ORDERED: Amiodarone 150 MG/3 ML VIAL ONE (12:09)
[2018-04-14] MEDS ORDERED: Amiodarone 450 MG, Admixture Fee 1 EACH in Dextrose 5% in Water 250 ML IVPB SCH (12:30)
--- NOTE | 2018-04-14 12:39 | OP ---
DATE OF PROCEDURE: 04/14/2018 ELECTROPHYSIOLOGY STUDY AND RADIOFREQUENCY ABLATION REPORT REASON FOR PROCEDURE: Mr. Dickinson is a 58-year-old gentleman with a history of atrial fibrillation and flutter both. He underwent cavotricuspid isthmus ablation and pulmonary venous isolation and posterior wall ablation back in October of 2017, had multiple recurrences requiring flecainide for suppression, here for repeat ablation procedure. DESCRIPTION OF PROCEDURE: The patient received propofol and general anesthesia by Anesthesia specialist. Left and right femoral venous area were prepped, draped, and anesthetized using subcutaneous lidocaine and under ultrasound guidance, both femoral veins were cannulated x2. On the left femoral vein, a 9-Malay short sheath was used to advance the intracardiac echo probe into the right atrium and it was used to monitor the transeptal procedure as well as accumulation of any fluid throughout the procedure. Also on the left side, Preface sheath was advanced into the IVC to aid in positioning of a DuoDeca catheter into the CS and the right atrial position appropriately. Following that, from the right side, two 8-Malay short sheath was introduced, which was used to advance a ThermoCool SFST catheter in the right atrium. A 3D map of the right atrium was obtained, delineating the His bundle, CS os, and cavotricuspid isthmus location in detail. Basic EP study was performed at this point and demonstrated AV Wenckebach cycle length of 300 milliseconds. AVN-ERP 600/260 milliseconds. No dual AV marlee physiology was present. Burst atrial pacing at higher cycle length. No induced atrial flutter with cycle length of 260 milliseconds. The atrial flutter appears to be typical isthmus dependent in morphology. Post pacing intervals at the cavotricuspid isthmus area was matching the tachycardia cycle length at 260 milliseconds. Also propagation map was consistent with typical isthmus dependent flutter. At this point, repeated cavotricuspid isthmus ablation was performed, which terminated the atrial flutter. With proximal CS pacing, further ablation lesion was placed to achieved total transisthmus time of 180 milliseconds with transisthmus block demonstrated by longest transisthmus times measured adjacent to the ablation line. Also, DuoDeca catheter was suggestive of isthmus block. Following that, a reduction of the atrial flutter was unsuccessful. At this point, proceeded with transseptal catheterization x2 with ultrasound guidance. Heparin was administered, which was used to keep ACT over 350 throughout the procedure. Multiple measurements were taken. SL1 sheaths were introduced x2 in the left atrium where the transseptal procedure and a 20-pole Lasso catheter as well as ThermoCool SFST catheter was advanced to the left atrium. A 3D map of left atrium was obtained. Three pulmonary veins were found isolated but the left inferior pulmonary vein was found to be connected, ablation at the earliest activation eliminated the connection and remained isolated throughout the procedure. The posterior wall was also remapped. Additional lesions were placed in the inferior and superior aspect of the previously paced line. Throughout the procedure, esophageal probe was removed and used to avoid excessive heating of the esophagus. Following that, Isuprel was administered at 20 mcg and the reconnection was checked and ablated. Total of 23 ablation lesions placed, total duration 13 minutes and 8 seconds at 40 espinoza. At the end of the case, the cavotricuspid isthmus patency was rechecked and found to be patent. The pericardial space was free of effusion by ICE catheter and cardiac silhouette did not change significantly. NUMERICAL FINDINGS: Baseline sinus rhythm is 629 milliseconds, MD 56, QRS 86, QT 303 milliseconds, again a Wenckebach cycle length of 300 seconds. AV marlee ERP was 600/260 milliseconds. His HV was about 50 milliseconds. CONCLUSION: 1. Successful induction of typical isthmus dependent atrial flutter, which was eliminated by redo cavotricuspid isthmus ablation. 2. Successful re-isolation of the left inferior pulmonary vein as well as the posterior wall, remaining pulmonary veins were found to be patent. 3. Continue anticoagulation short term and monitor for recurrent arrhythmias. Job ID: [id number]
[2018-04-14] MEDS ORDERED: Promethazine HCl 25 MG/ML VIAL IM PRN (12:44)
[2018-04-14] MEDS ORDERED: Promethazine HCl 25 MG/ML VIAL SLOW IVP PRN (12:44)
[2018-04-14] MEDS ORDERED: HYDROmorphone 2 MG/ML VIAL SLOW IVP PRN (12:44)
[2018-04-14] MEDS ORDERED: Ondansetron HCl/PF 4 MG/2 ML Vial IVP PRN (12:44)
[2018-04-14] MEDS ORDERED: Ketorolac Tromethamine 30 MG/ML VIAL IVP PRN (12:44)
[2018-04-14] MEDS ORDERED: Meperidine HCl/PF 25 MG/ML VIAL SLOW IVP PRN (12:44)
[2018-04-14] MEDS ORDERED: Ondansetron PF 4 MG/2 ML Vial ONE (12:49)
[2018-04-14 14:37] VITALS: BMI 27.8
[2018-04-14] MEDS ORDERED: Lidocaine 1% PF 5 ML VIAL ONE (14:59)
[2018-04-14] MEDS ORDERED: Rocuronium Bromide 10 MG/ML (10ML VIAL) ONE (14:59)
[2018-04-14] MEDS ORDERED: Glycopyrrolate 0.2 MG/ML 5 ML SYRINGE ONE (14:59)
[2018-04-14] MEDS ORDERED: ePHEDrine 50 MG/ML VIAL ONE (14:59)
[2018-04-14] MEDS ORDERED: PROPOFOL 200 MG/20 ML VIAL ONE (14:59)
[2018-04-14] MEDS: Apixaban 5 MG TAB PO SCH (20:16)
[2018-04-14] MEDS ORDERED: Hydrocortisone 1% Cream 1.5 GM Packet TOP PRN (20:34)
[2018-04-14] MEDS ORDERED: diphenhydrAMINE 25 MG CAP PO PRN (20:34)
[2018-04-14] MEDS ORDERED: Hydrocortisone 1% Cream 30 GM TUBE TOP PRN (20:36)
[2018-04-14] MEDS ORDERED: Tamsulosin HCl 0.4 MG CAP PO SCH (21:00)
[2018-04-15] MEDS: Apixaban 5 MG TAB PO SCH (08:41)
[2018-04-15] MEDS ORDERED: Tamsulosin HCl 0.4 MG CAP PO SCH (09:00)
[2018-04-15 12:06] VITALS: BP 129/76; TEMP 97.8
--- NOTE | 2018-04-15 15:25 | DIS ---
DATE OF ADMISSION: 04/14/2018 DATE OF DISCHARGE: 04/15/2018 DIAGNOSES: Atrial fibrillation and atrial flutter. PROCEDURES PERFORMED: Include electrophysiology study and radiofrequency ablation. HISTORY OF PRESENT ILLNESS: Mr. Dickinson is a pleasant 58-year-old gentleman with a history of both atrial fibrillation and atrial flutter. He underwent CTI ablation with PVI and posterior wall ablation in October 2017. He had multiple early recurrences requiring flecainide for suppression and was admitted on 04/14/2018, for elective EP study and redo ablation. During the procedure, he underwent successful induction of typical cavotricuspid isthmus-dependent flutter, which was eliminated by redo CTI ablation in addition to successful re-isolation of the left inferior pulmonary vein, posterior wall. The remaining pulmonary veins were found to be isolated and silent. A total of 13 minutes 8 seconds RF energy was delivered. After catheters were removed, the long sheath with the Isuprel infusion was flushed, and the patient firstly did go into atrial fibrillation largely suspected from the Isuprel sheath being flushed. Amiodarone IV piggyback was given to restore sinus rhythm, and the patient remained hemodynamically stable throughout this. RECOMMENDATIONS POSTPROCEDURE: Continue anticoagulation for at least 3 months postablation. Monitor for recurrence of arrhythmias. Discontinue flecainide unless early recurrence is seen. SUBJECTIVE: Mr. Dickinson is feeling well today. He denies any heart racing, palpitation, chest pain, pressure, syncope, near syncope, stroke, or stroke-like symptoms. His groin sites have been stable and going well. Today, although, he did have some initial slight bleeding at the left groin site, which has long since been stable. He has been up, ambulating throughout the etienne without difficulty. He had his Cardoso catheter removed yesterday, but did have some retention requiring I and O catheterization x2 yesterday, which again has resolved, and he is voiding normally without difficulty this morning. He is tolerating p.o. intake without nausea or vomiting. He denies as mentioned any chest pain or shortness of breath postablation. OBJECTIVE: VITAL SIGNS: Temperature 97.8, pulse 64, blood pressure 129/76, respirations 16, oxygen is 95% on room air. GENERAL: The patient is alert and oriented. Speech is clear. Affect is appropriate. HEART: Heart rate is regularly regular with crisp S1 and S2. No rubs, murmurs, or gallops are appreciated. There is no clinical concern for tamponade based on physical exam findings. LUNGS: Clear to auscultation bilaterally. ABDOMEN: Soft and nontender without palpable masses. Hepatojugular reflux is negative. NECK: There is no JVD. EXTREMITIES: Warm and dry to touch without clubbing, cyanosis, or edema. NEUROLOGIC: Grossly intact and nonfocal. His gait is stable. CONDITION AT DISCHARGE: Stable. DISCHARGE INSTRUCTIONS: 1. Follow up in 6 weeks or sooner symptoms dictate. Contact [facility] with any postablation questions. 2. Continue Eliquis without interruption unless instructed by [facility]. 3. May return to work on 04/18/2018. 4. No lifting more than 5 to 10 pounds x3 days. 5. Watch for fluid overload and take Lasix with potassium as needed. DISCHARGE MEDICATIONS: 1. Tamsulosin hydrochloride 0.4 mg p.o. at bedtime. 2. Apixaban 5 mg p.o. b.i.d. 3. Metoprolol succinate 25 mg p.o. daily, but hold for heart rate less than 55 beats per minute. New prescription submitted included: 1. Carafate 1 g p.o. q.i.d. x2 weeks. 2. Pantoprazole 40 mg p.o. daily x30 days. 3. The patient may take Lasix 40 mg with 20 mEq of potassium chloride for any shortness of breath or fluid retention . medications: Flecainide 50 mg b.i.d. Job ID: [id number]
--- NOTE | 2018-04-15 15:42 | EKG ---
Test Reason : PREOP ABLATION Blood Pressure : / mmHG Vent. Rate : 058 BPM Atrial Rate : 058 BPM P-R Int : 176 ms QRS Dur : 090 ms QT Int : 418 ms P-R-T Axes : -02 084 023 degrees QTc Int : 410 ms Sinus bradycardia Inferior-posterior infarct (cited on or before 28-FEB-2018) T wave abnormality, consider lateral ischemia Abnormal ECG Confirmed by GEETHA LEARY ([id number]) on 04/15/2018 3:42:26 PM Referred By: ELEUTERIO Confirmed By:GEETHA LEARY
--- NOTE | 2018-04-15 16:15 | EKG ---
Test Reason : POST ABLATION Blood Pressure : / mmHG Vent. Rate : 079 BPM Atrial Rate : 079 BPM P-R Int : 148 ms QRS Dur : 100 ms QT Int : 388 ms P-R-T Axes : 056 092 036 degrees QTc Int : 444 ms Normal sinus rhythm Rightward axis Cannot rule out Inferior infarct (cited on or before 28-FEB-2018) T wave abnormality, consider lateral ischemia Abnormal ECG Confirmed by GEETHA LEARY ([id number]) on 04/15/2018 4:14:59 PM Referred By: ELEUTERIO Confirmed By:GEETHA LEARY
--- NOTE | 2018-04-15 16:22 | EKG ---
Test Reason : Blood Pressure : / mmHG Vent. Rate : 064 BPM Atrial Rate : 064 BPM P-R Int : 172 ms QRS Dur : 104 ms QT Int : 414 ms P-R-T Axes : 065 086 138 degrees QTc Int : 427 ms Normal sinus rhythm Cannot rule out Inferior infarct (cited on or before 28-FEB-2018) T wave abnormality, consider lateral ischemia Abnormal ECG Confirmed by GEETHA LEARY ([id number]) on 04/15/2018 4:21:40 PM Referred By: ELEUTERIO Confirmed By:GEETHA LEARY
== END 2018-04-15 15:30 | disposition home or self-care (01) ==
LOC: CCL 05:45 → 2SW 13:47
PROVIDERS: ADMIT Internal Medicine Cardiovascular Disease; ATTEND Internal Medicine Cardiovascular Disease
PROC: 02583ZZ Destruction of Conduction Mechanism, Percutaneous Approach (ICD-10-PCS; principal; 2018-04-14)
PROC: 02K83ZZ Map Conduction Mechanism, Percutaneous Approach (ICD-10-PCS; 2018-04-14)
PROC: 4A023FZ Measurement of Cardiac Rhythm, Percutaneous Approach (ICD-10-PCS; 2018-04-14)
PROC: 4A0234Z Measurement of Cardiac Electrical Activity, Percutaneous Approach (ICD-10-PCS; 2018-04-14)
DX: I48.0 Paroxysmal atrial fibrillation (principal); I48.3 Typical atrial flutter; I48.4 Atypical atrial flutter; I10 Essential (primary) hypertension; E78.5 Hyperlipidemia, unspecified; N40.0 Benign prostatic hyperplasia without lower urinary tract symptoms; Z79.01 Long term (current) use of anticoagulants; Z79.899 Other long term (current) drug therapy
CPT/HCPCS: 36415; 51701; 76942; 80048; 85025; 85347; 85610; 85730; 93005; 93010; 93613; 93623; 93653; 93655; 93662; C1730; C1731; C1732; C1759; C1769; G0378; J0131; J0282; J1644; J2001; J2250; J2370; J2405; J2704; J2720; J3010; J3490; J7070